=== PATIENT | male | born 1980 | race Hispanic/Latino ===

== ENCOUNTER 2023-12-07 16:53 | Emergency (ER) | payer OTHER ==
[~2023-12-07] VITALS: Ht 182.9 cm; Wt 97.5 kg
[2023-12-07 18:34] VITALS: TEMP 98.1
[2023-12-07] MEDS: IBUPROFEN 800 MG TAB PO ONE (18:34)
[2023-12-07] MEDS ORDERED: IBUP-2077 PO (19:46)
[2023-12-07 19:53] VITALS: BP 138/75; PULSE 74; RESP 18; O2SAT 99
== END 2023-12-07 19:56 | disposition home or self-care (01) ==
LOC: EDH 16:53
DX: S40.012A Contusion of left shoulder, initial encounter (principal); S60.212A Contusion of left wrist, initial encounter; V89.2XXA Person injured in unspecified motor-vehicle accident, traffic, initial encounter; Y93.89 Activity, other specified; Y92.89 Other specified places as the place of occurrence of the external cause; Y99.8 Other external cause status
CPT/HCPCS: 73030; 73090; 73110